=== PATIENT | male | born 1945 | race Caucasian/White ===

== ENCOUNTER 2017-07-08 12:29 | Inpatient (IN) | payer MEDICARE, MEDICAID ==
[2017-07-08] VITALS (10 sets, daily range): BP systolic 104–116; BP diastolic 60–72
[~2017-07-08] VITALS: Ht 177.8 cm; Wt 75.9 kg
--- NOTE | 2017-07-08 12:45 | NUR ---
BIB [facility] C/O NAUSEA PRIOR TO DIALYSIS, WAS NOT DIALYSED TODAY, NAD NOTED, VSS, RESP EVEN AND UNLABORED, PA AT BS, IV STARTED, BLOOD SAMPLE SENT TO LAB.
[2017-07-08 12:56] LABS: BASOPHILS % (AUTO) 0.3 % (0.0-2.0); EOSINOPHILS # (AUTO) 0.1 /CMM (0.0-0.7); EOSINOPHILS % (AUTO) 1.1 % (0.0-6.0); HEMATOCRIT 21 % (39-51); LYMPHOCYTES # (AUTO) 0.7 /CMM (0.8-4.8); LYMPHOCYTES % (AUTO) 9.7 % (20.0-44.0); MEAN CORPUSCULAR HEMOGLOBIN 32 PG (26.0-33.0); MEAN CORPUSCULAR HGB CONC 33 g/dl (31.0-36.0); MEAN CORPUSCULAR VOLUME 94 fL (80-96); MONOCYTES # (AUTO) 0.4 /CMM (0.1-1.30); MONOCYTES % (AUTO) 5.5 % (2.0-12.0); NEUTROPHILS # (AUTO) 5.6 /CMM (1.8-8.9); NEUTROPHILS % (AUTO) 83.4 % (43.0-81.0); PLATELET COUNT (AUTO) 147 /CMM (150-450); RDW COEFFICIENT OF VARIATION 15.6 (11.5-15.0); RED BLOOD CELL COUNT(AUTO) 2.18 MIL/uL (4.5-6.0); WHITE BLOOD COUNT (AUTO) 6.8 K/uL (4.3-11.0)
[2017-07-08 12:59] LABS: HEMOGLOBIN 6.9 g/dL (13.5-17.5)
[2017-07-08 13:07] LABS: CARBON DIOXIDE 32 mmol/L (21-32); CHLORIDE 100 mmol/L (98-107); CREATININE 7.1 mg/dL (0.6-1.3); GLUCOSE 195 mg/dL (74-106); POTASSIUM 4.8 mmol/L (3.5-5.1); SODIUM SERUM 139 mmol/L (136-145); UREA NITROGEN, BLOOD 58 mg/dL (7-18)
[2017-07-08 13:10] LABS: INR 0.98 (0.87-1.13); PROTHROMBIN TIME 10.2 SECS (9.5-12.7)
--- NOTE | 2017-07-08 13:14 | NUR ---
PT IS UNABLE TO URINATE. WILL TRY AGAIN IN 10 MINUTES.
[2017-07-08 13:16] LABS: TROPONIN I 1.733 ng/mL (0.00-0.056)
[2017-07-08 13:18] LABS: ALANINE AMINOTRANSFERASE 25 U/L (12-78); ALBUMIN 3.2 g/dL (3.4-5.0); ALKALINE PHOSPHATASE 49 U/L (46-116); ASPARTATE AMINOTRANSFERASE 18 U/L (15-37); BILIRUBIN,DIRECT 0.2 mg/dL (0.0-0.2); BILIRUBIN,TOTAL 0.7 mg/dL (0.2-1.0); TOTAL PROTEIN, SERUM 7.5 g/dL (6.4-8.2)
--- NOTE | 2017-07-08 13:34 | NUR ---
CALLED DR HAYES, ON THE PHONE WITH DR FLORES.
--- NOTE | 2017-07-08 13:41 | NUR ---
CALLED DR WELLS OFFICE, WAS PAGED.
[2017-07-08] MEDS ORDERED: PANTOPRAZOLE 80 MG in IV NS 0.9% 100 ML IV ONE (14:00)
[2017-07-08] MEDS ORDERED: PANTOPRAZOLE 80 MG in IV NS 0.9% 500 ML IV ONE (14:00)
--- NOTE | 2017-07-08 14:00 | NUR ---
RN INITIAL NOTE PATIENT RECEIVED VIA GURNEY FROM ER. PATIENT IS AWAKE, ALERT AND ORIENTED. ABLE TO MAKE NEEDS KNOWN. IV SITE FLUSHED, PATENT. SINUS RHYTHM ON TELE MONITOR. SKIN IS WARM AND DRY TO TOUCH. RESPIRATIONS ARE EVEN, TACHY. SATING WELL ON ROOM AIR. NO S/S OF RESPIRATORY DISTRESS OR SOB. SAFETY PRECAUTIONS IMPLEMENTED. BED IN LOCKED, LOW POSITION. TWO SIDE RAILS UP. CALL LIGHT AND BELONGINGS WITHIN EASY REACH. WILL CONTINUE TO MONITOR.
[2017-07-08] MEDS ORDERED: OLANZAPINE 10 MG VIAL IM ONE ×2 (14:15→14:30)
[2017-07-08] MEDS ORDERED: INSU100V11 SQ (14:17)
[2017-07-08] MEDS ORDERED: MULT1TAB11 PO (14:17)
[2017-07-08] MEDS ORDERED: EZET10TA PO (14:17)
[2017-07-08] MEDS ORDERED: ASPI-991 PO (14:17)
[2017-07-08] MEDS ORDERED: BENA20TA2 PO (14:17)
[2017-07-08] MEDS ORDERED: THIA100T74 PO (14:17)
[2017-07-08] MEDS ORDERED: BLOO-668 IN (14:17)
[2017-07-08] MEDS ORDERED: METO25TA20 PO (14:17)
[2017-07-08] MEDS ORDERED: SITA50TA PO (14:17)
[2017-07-08] MEDS ORDERED: AMLO2.5T PO (14:17)
[2017-07-08] MEDS ORDERED: CLOP75TA2 PO (14:17)
[2017-07-08] MEDS ORDERED: FOLI1TAB16 PO (14:17)
[2017-07-08] MEDS ORDERED: OMEG-143 PO (14:17)
[2017-07-08] MEDS ORDERED: CALC667T2 PO (14:17)
[2017-07-08] MEDS ORDERED: ONDA4TAB5 PO (14:18)
[2017-07-08] MEDS ORDERED: ACET-868 PO (14:19)
[2017-07-08] MEDS ORDERED: MAG30ORA PO (14:19)
[2017-07-08] MEDS ORDERED: DOCU-25 PO (14:19)
[2017-07-08 15:36] LABS: LYMPHOCYTES % (MANUAL) 8 % (16-48); MONOCYTES % (MANUAL) 2 % (0-11.0); NEUTROPHILS % (MANUAL) 90 (42-76)
[2017-07-08] MEDS ORDERED: DEXTROSE 50%-WATER 50 ML DISP.SYRIN IV PRN (16:30)
[2017-07-08] MEDS ORDERED: ONDANSETRON HCL/PF 4 MG/2 ML VIAL IV PRN (17:00)
[2017-07-08] MEDS ORDERED: Medication Not On Formulary EA (Ondansetron Hcl (Zofran) 4 MG) PO PRN (17:00)
[2017-07-08] MEDS ORDERED: MAG HYDROX/AL HYDROX/SIMETH 30 ML UDC PO PRN (17:00)
[2017-07-08] MEDS: BLOOD SUGAR DIAGNOSTIC 1 EACH STRIP IN SCH ×4 (17:30→21:29)
[2017-07-08] MEDS: ACETAMINOPHEN 325 MG TABLET PO PRN ×2 (17:36→20:49)
[2017-07-08] MEDS: CALCIUM ACETATE 667 MG TABLET PO SCH ×2 (17:36→22:28)
[2017-07-08] MEDS: METOPROLOL TARTRATE 25 MG TABLET PO SCH ×2 (17:36→22:29)
[2017-07-08] MEDS: PANTOPRAZOLE 40 MG VIAL IV SCH (17:59)
[2017-07-08] MEDS: INSULIN ASPART HUMALOG/NOVOLOG 100 UNIT/ML CARTRIDGE SQ PRN ×2 (18:17→21:27)
--- NOTE | 2017-07-08 18:59 | NUR ---
RN CLOSING NOTE ALL MD ORDERS CARRIED OUT, PATIENT KEPT CLEAN AND DRY. SAFETY PRECAUTIONS IN PLACE AT ALL TIMES . WILL GIVE REPORT TO PM RN FOR LOC.
--- NOTE | 2017-07-08 19:35 | NUR ---
RN PAUL OPENING NOTE PT REMAINS IN NO ACUTE DISTRESS AT THIS TIME. PT IS ON TELE WITH SR 87. PT IS VERY AGITATED AND WHEN ASKING HIM FOR CONSENT FOR 1 UNIT OF BLOOD HE THEN STATED "GET THE FUCK AWAY FROM ME OR ELSE I WILL PUT MY FIST THROUGH YOUR FACE". I THEN CALLED SISTER FOR VERBAL CONSENT. PT HAS MIDLINE 18G THAT IS CLEAN DRY AND INTACT. NEW 22G STARTED IN LEFT FA AND 22G IN RIGHT HAND. BLOOD TO BE GIVEN SOON. COMFORT AND SAFETY MEASURES TO BE ENSURED DURING THE SHIFT.
--- NOTE | 2017-07-08 20:00 | NUR ---
RN NOTE SOFT RESTRAINTS PLACED ON PT BILATERAL WRISTS. ORDER PLACED FROM IAIN MAYERS
--- NOTE | 2017-07-08 22:26 | NUR ---
RN NOTE PT IS TOLERATING 1 UNIT PRBC WELL. VITALS WNL. WILL CONTINUE TO MONITOR.
[2017-07-08] MEDS: RENAL NOVASOURCE (8OZ) 1 EA BOX PO SCH (22:29)
[2017-07-09] VITALS: BP 107/68
[2017-07-09 04:00] VITALS: BP 114/72
[2017-07-09 06:39] LABS: BASOPHILS % (AUTO) 0.8 % (0.0-2.0); EOSINOPHILS # (AUTO) 0.1 /CMM (0.0-0.7); EOSINOPHILS % (AUTO) 1.6 % (0.0-6.0); HEMATOCRIT 21 % (39-51); HEMOGLOBIN 7.1 g/dL (13.5-17.5); LYMPHOCYTES # (AUTO) 0.8 /CMM (0.8-4.8); MEAN CORPUSCULAR HEMOGLOBIN 32 PG (26.0-33.0); MEAN CORPUSCULAR HGB CONC 34 g/dl (31.0-36.0); MEAN CORPUSCULAR VOLUME 94 fL (80-96); MONOCYTES # (AUTO) 0.2 /CMM (0.1-1.30); MONOCYTES % (AUTO) 4.4 % (2.0-12.0); NEUTROPHILS % (AUTO) 78.2 % (43.0-81.0); PLATELET COUNT (AUTO) 113 /CMM (150-450); RDW COEFFICIENT OF VARIATION 16.1 (11.5-15.0); RED BLOOD CELL COUNT(AUTO) 2.22 MIL/uL (4.5-6.0); WHITE BLOOD COUNT (AUTO) 5.1 K/uL (4.3-11.0)
[2017-07-09 06:55] LABS: CALCIUM, SERUM 8.5 mg/dL (8.5-10.1); CARBON DIOXIDE 29 mmol/L (21-32); CHLORIDE 103 mmol/L (98-107); GLUCOSE 222 mg/dL (74-106); MAGNESIUM 2.6 mg/dL (1.8-2.4); PHOSPHORUS 6.2 mg/dL (2.5-4.9); POTASSIUM 5.3 mmol/L (3.5-5.1); SODIUM SERUM 142 mmol/L (136-145); UREA NITROGEN, BLOOD 61 mg/dL (7-18)
[2017-07-09] MEDS: BLOOD SUGAR DIAGNOSTIC 1 EACH STRIP IN SCH ×5 (07:30→21:34)
[2017-07-09 08:00] VITALS: BP 125/72
[2017-07-09] MEDS: RENAL NOVASOURCE (8OZ) 1 EA BOX PO SCH ×3 (08:00→17:26)
--- NOTE | 2017-07-09 08:00 | NUR ---
TD/RN AM SHIFT INITIAL NOTES RECEIVED PT AWAKE SITTING IN BED, PT IS A/O X 2-3 WITH NOTED CONFUSION. RUDE, CURSES, USED OBSCENE LANGUAGE. NO ACTIVE BLEEDING NOTED AT THIS TIME, NO ACUTE CHANGE OF CONDITION. DENIES PAIN. ON 2L O2 VIA N/C SATURATING @ 100%, LUNG SOUNDS CLEAR. ON TELE WITH SINUS RHYTHM, HR 98. IV SITE FLUSHED, PATENT WITH NO S/S OF INFECTION. BLOOD GLUCOSE CHECKED, 224, NO S/S OF HYPERGLYCEMIA, PT REFUSED INSULIN COVERAGE. SCHEDULED AM MEDS TO BE GIVEN. CL WITHIN REACHED, SAFETY MAINTAINED AND SITTER AT BEDSIDE. ON GOING MONITORING.
[2017-07-09] MEDS: CALCIUM ACETATE 667 MG TABLET PO SCH ×3 (08:49→17:26)
[2017-07-09] MEDS: MULTIVIT, IRON, MIN NO. 8, FA 1 TAB PO SCH (08:49)
[2017-07-09] MEDS: FOLIC ACID 1 MG TABLET PO SCH (08:49)
[2017-07-09] MEDS: AMLODIPINE BESYLATE 2.5 MG TABLET PO SCH (08:50)
[2017-07-09] MEDS: BENAZEPRIL HCL 10 MG TABLET PO SCH (08:50)
[2017-07-09] MEDS: LINAGLIPTIN 5 MG TABLET PO SCH (08:50)
[2017-07-09] MEDS: ASPIRIN EC 81 MG TABLET.DR PO SCH (08:50)
[2017-07-09] MEDS: METOPROLOL TARTRATE 25 MG TABLET PO SCH ×2 (08:50→17:00)
[2017-07-09] MEDS: Z GUARD REMEDY 2 OZ OINT TP SCH (08:51)
[2017-07-09] MEDS: THIAMINE HCL 100 MG TABLET PO SCH (08:51)
[2017-07-09] MEDS ORDERED: SITAGLIPTIN PHOSPHATE 50 MG TABLET PO SCH (09:00)
--- NOTE | 2017-07-09 11:30 | NUR ---
TD/RN NOON ROUNDS BLOOD GLUCOSE CHECKED, RESULT 240, PT REFUSED INSULIN COVERAGE. RISKS AND BENEFITS EXPLAINED, PT STILL REFUSED COVERAGE, NO S/S OF HYPERGLYCEMIA. PT IS COMFORTABLE, SITTER AT BEDSIDE. MONITORING CONTINUED.
[2017-07-09 12:00] VITALS: BP 101/49
--- NOTE | 2017-07-09 12:22 | NUR ---
TD/RN ROUNDS - DR. ALFONSO PT SEEN & EXAMINED BY DR. ALFONSO. NO NEW ORDERS RECEIVED AT THIS TIME. PT VERBALIZED TO BOTH MYSELF AND DR. ALFONSO HIS REFUSAL FOR DIALYSIS TREATMENT. CHARGE NURSE MADE AWARE. ON GOING MONITORING.
[2017-07-09 16:00] VITALS: BP 98/46
[2017-07-09] MEDS: PANTOPRAZOLE 40 MG VIAL IV SCH (17:26)
--- NOTE | 2017-07-09 18:28 | NUR ---
TD/REGISTRY RN SPOKEN TO PT'S SISTER, UPDATED PT'S CONDITION. SHE REQUESTED A VISIT FROM A RABBI, BUT WHEN PT WAS ASKED, HE SAID HIS RABBI IS AND DON'T WANT TO SEE ANY OTHER RABBI. PT'S SISTER ALSO WANT TO SPEAK TO SOCIAL SERVICE REGARDING PT'S REFUSAL FOR SOME TREATMENT LIKE DIALYSIS. SHE SAID THAT SHE IS NOT THE LEGAL ADVOCATE FOR HER BROTHER.
[2017-07-09] MEDS: ACETAMINOPHEN 325 MG TABLET PO PRN (18:54)
--- NOTE | 2017-07-09 19:30 | NUR ---
TD/RN AM SHIFT END NOTES ALL NEEDS MET. NO ACUTE CHANGE OF CONDITION NOTED DURING THE SHIFT. PT HAS REFUSED ALL INSULIN COVERAGE, RISKS AND BENEFITS EXPLAINED, STILL REFUSED. PT TAKES ORAL MEDICATION FOR DIABETES, NO S/S OF HYPERGLYCEMIA NOTED. PT ENDORSED TO PM NURSE TO CONTINUE CARE. CL WITHIN REACHED AND SAFETY MAINTAINED, SITTER AT BEDSIDE.
--- NOTE | 2017-07-09 19:30 | NUR ---
PAUL RN INITIAL NOTES RECEIVED PATIENT AWAKE, ALERT, UNCOOPERATIVE, VERBALLY ABUSIVE AND MAKING RACIAL SLURS, AND THREATS TO HURT US. NO RESPIRATORY DISTRESS NOTED, ON RA. ON TELE MONITOR SR WITH BBB 86. SKIN WARM AND DRY TO TOUCH. NO S/S OF PAIN OR DISCOMFORT NOTED. SKIN WARM AND DRY TO TOUCH. WITH BILATERAL WRIST RESTRAINTS, CIRCULATION CHECKED. SIDE RAILS UP AND LOCKED. BED KEPT AT LOWEST POSITION. CALL LIGHT KEPT WITHIN EASY REACH. WILL CONTINUE TO MONITOR.
[2017-07-09 20:00] VITALS: BP 98/56
--- NOTE | 2017-07-09 22:00 | NUR ---
PAUL RN NOTES BLOOD SUGAR CHECKED 177, PATIENT REFUSED INSULIN, DESPITE EXPLANATIONS OF RISKS AND BENEFITS. PATIENT HOSTILE. NO S/S OF HYPERGLYCEMIA. WILL CONTINUE TO MONITOR.
[2017-07-10] VITALS (10 sets, daily range): BP systolic 99–135; BP diastolic 36–68
--- NOTE | 2017-07-10 06:29 | NUR ---
PAUL RN CLOSING NOTES PATIENT SLEPT INTERMITTENTLY THROUGH THE NIGHT, WITH NO C/O PAIN OR DISCOMFORT. WITH CONTINOUS VERBAL ABUSE TOWARDS STAFF, NAME CALLING, RACIST REMARKS, AND OTHER INAPPROPRIATE WORDS. ALL NEEDS ANTICIPATED AND MET. NO RESPIRATORY DISTRESS NOTED, WITH 2LPMO2 VIA NC. SKIN WARM AND DRY TO TOUCH. KEPT CLEAN AND DRY. TURNED AND REPOSITIONED Q2 AND PRN. BILATERAL SOFT RESTRAINTS IN PLACE FOR PATIENTS SAFETY, CIRCULATION CHECKED. SIDE RAILS UP AND LOCKED. BED KEPT AT LOWEST POSITION. CALL LIGHT KEPT WITHIN EASY REACH. WILL ENDORSE CONTINUITY OF CARE TO AM NURSE.
[2017-07-10 06:57] LABS: BASOPHILS % (AUTO) 0.8 % (0.0-2.0); EOSINOPHILS # (AUTO) 0.1 /CMM (0.0-0.7); LYMPHOCYTES # (AUTO) 0.6 /CMM (0.8-4.8); LYMPHOCYTES % (AUTO) 16.5 % (20.0-44.0); MEAN CORPUSCULAR HEMOGLOBIN 32 PG (26.0-33.0); MEAN CORPUSCULAR HGB CONC 34 g/dl (31.0-36.0); MEAN CORPUSCULAR VOLUME 95 fL (80-96); MONOCYTES # (AUTO) 0.2 /CMM (0.1-1.30); MONOCYTES % (AUTO) 5.1 % (2.0-12.0); NEUTROPHILS # (AUTO) 2.9 /CMM (1.8-8.9); NEUTROPHILS % (AUTO) 74.6 % (43.0-81.0); PLATELET COUNT (AUTO) 95 /CMM (150-450); RDW COEFFICIENT OF VARIATION 16.2 (11.5-15.0); RED BLOOD CELL COUNT(AUTO) 2.07 MIL/uL (4.5-6.0); WHITE BLOOD COUNT (AUTO) 3.9 K/uL (4.3-11.0)
[2017-07-10 07:11] LABS: ALANINE AMINOTRANSFERASE 19 U/L (12-78); ALBUMIN 2.5 g/dL (3.4-5.0); ALKALINE PHOSPHATASE 43 U/L (46-116); ASPARTATE AMINOTRANSFERASE 14 U/L (15-37); BILIRUBIN,TOTAL 0.7 mg/dL (0.2-1.0); CALCIUM, SERUM 8.7 mg/dL (8.5-10.1); CARBON DIOXIDE 27 mmol/L (21-32); CHLORIDE 103 mmol/L (98-107); GLUCOSE 202 mg/dL (74-106); MAGNESIUM 2.7 mg/dL (1.8-2.4); PHOSPHORUS 6.8 mg/dL (2.5-4.9); POTASSIUM 5.3 mmol/L (3.5-5.1); SODIUM SERUM 139 mmol/L (136-145); TOTAL PROTEIN, SERUM 6.7 g/dL (6.4-8.2); UREA NITROGEN, BLOOD 70 mg/dL (7-18)
[2017-07-10 07:12] LABS: HEMATOCRIT 20 % (39-51); HEMOGLOBIN 6.6 g/dL (13.5-17.5)
[2017-07-10 07:14] LABS: CREATININE 9.2 mg/dL (0.6-1.3)
--- NOTE | 2017-07-10 07:15 | NUR ---
PAUL RN NOTES RECEIVED CRITICAL RESULT OF HGB 6.6 AND HCT 20. NO ACTIVE BLEEDING NOTED. RELAYED TO AM NURSE.
--- NOTE | 2017-07-10 07:30 | NUR ---
TD/RN ROUNDS - DR. ELIZONDO PT SEEN & EXAMINED BY DR. ELIZONDO, PER MD PT AGREED TO BE DIALYZED AND TRANSFUSED. NOTED.
[2017-07-10] MEDS: RENAL NOVASOURCE (8OZ) 1 EA BOX PO SCH ×3 (08:00→17:30)
--- NOTE | 2017-07-10 08:00 | NUR ---
TD/RN AM SHIFT INITIAL NOTES RECEIVED PT AWAKE SITTING IN BED. PT A/O X 3 WITH NOTED CONFUSION. DENIES ANY SYMPTOMS. NO ACUTE CHANGE OF CONDITION NOTED. MORE PLEASANT THIS MORNING. ON 2L O2 VIA N/C SATURATING @ 100%, LUNG SOUNDS CLEAR. ON TELE WITH SINUS RHYTHM WITH BBB, HR 72. IV SITE FLUSHED, PATENT WITH NO S/S OF INFECTION, SL. BP MEDS TO BE HELD. PT WILL HAVE DIALYSIS TX TODAY. BILATERAL WRIST RESTRAINTS RELEASED TO CHECK FOR CIRCULATION AND COMFORT THEN PLACED BACK. BLOOD GLUCOSE CHECKED, 210, PT REFUSED INSULIN COVERAGE, HE IS TAKING ORAL MEDICATION FOR DIABETES. PT IS COMFORTABLE AT THIS TIME. CL WITHIN REACHED AND SAFETY MAINTAINED. ON GOING MONITORING.
[2017-07-10] MEDS: AMLODIPINE BESYLATE 2.5 MG TABLET PO SCH (09:00)
[2017-07-10] MEDS: METOPROLOL TARTRATE 25 MG TABLET PO SCH ×2 (09:00→16:45)
[2017-07-10] MEDS: BENAZEPRIL HCL 10 MG TABLET PO SCH (09:00)
[2017-07-10] MEDS: BLOOD SUGAR DIAGNOSTIC 1 EACH STRIP IN SCH ×4 (09:20→22:02)
[2017-07-10] MEDS: CALCIUM ACETATE 667 MG TABLET PO SCH ×3 (09:21→17:30)
[2017-07-10] MEDS: ASPIRIN EC 81 MG TABLET.DR PO SCH (09:21)
[2017-07-10] MEDS: MULTIVIT, IRON, MIN NO. 8, FA 1 TAB PO SCH (09:21)
[2017-07-10] MEDS: FOLIC ACID 1 MG TABLET PO SCH (09:21)
[2017-07-10] MEDS: LINAGLIPTIN 5 MG TABLET PO SCH (09:21)
[2017-07-10] MEDS: Z GUARD REMEDY 2 OZ OINT TP SCH (09:22)
[2017-07-10] MEDS: THIAMINE HCL 100 MG TABLET PO SCH (09:24)
--- NOTE | 2017-07-10 12:00 | NUR ---
TELE1/RN NOON ROUNDS BLOOD GLUCOSE CHECKED, RESULT 195, PT REFUSED INSULIN COVERAGE. RISKS & BENEFITS EXPLAINED, PT VERBALIZED UNDERSTANDING, STILL REFUSED. NO S/S OF HYPERGLYCEMIA. NO CHANGE OF CONDITION. MONITORING CONTINUED.
[2017-07-10] MEDS: PANTOPRAZOLE 40 MG VIAL IV SCH (16:43)
--- NOTE | 2017-07-10 17:00 | NUR ---
TELE1/RN AFTERNOON ROUNDS BLOOD GLUCOSE CHECKED, RESULT 149, PT REFUSED INSULIN COVERAGE. RISKS & BENEFITS EXPLAINED, PT VERBALIZED UNDERSTANDING, STILL REFUSED. NO S/S OF HYPERGLYCEMIA. SCHEDULED METOPROLOL HELD D/T PT WILL HAVE DIALYSIS THIS EVENING, BP ON THE LOW SIDE. NO CHANGE OF CONDITION. ON GOING MONITORING.
--- NOTE | 2017-07-10 19:40 | NUR ---
SKI TOW OPERATOR NOTES, PATIENT IN BED ALERT AND ORIENTED, ABLE TO VERBALIZED NEEDS, ON O2 2LPM VIA N/C SATURATION WNL BREATHING EVEN AND UNLABORED, NO S/S OF SOB OR ACUTE DISTRESS NOTED AT THIS TIME, RECEIVING HD AT THIS TIME, PT TOLERATING WELL AND VS WNL. TELE SR 78 WITH BBB. JC MIDLINE NO S/S OF INFECTION NOTED, PATENCY INTACT, CLRAN AND FLUSHING WELL. LCW PERM CATH IN PLACE, CLEAN AND DRY. SITTER AT BED SIDE FOR SAFETY. BED IN LOCKED AND LOWEST POSITION, CALL LIGHT W/I RAECH. ALL NEED PROVIDED. WILL CONTINUE TO MONITOR CLOSELY.
--- NOTE | 2017-07-10 19:51 | NUR ---
TELE1/RN AM SHIFT END NOTES ALL NEEDS MET. NO ACUTE CHANGE OF CONDITION NOTED DURING THE SHIFT. PT ENDORSED TO PM NURSE TO CONTINUE CARE. ON GOING DIALYSIS TX, TO BE GIVEN 1 UNIT OF PRBC. CL WITHIN REACHED AND SAFETY MAINTAINED.
--- NOTE | 2017-07-10 20:10 | NUR ---
RN NOTES, BLOOD TRANSFUSION OF ONE UNIT INITIATED DUE TO HEGB 6.6 WITH HD AT THIS TIME VS 111/48, 98.4, 80, 18. WELL TOLERATED AT THIS POINT. WILL CONTINUE TO MONITOR CLOSELY.
[2017-07-10] MEDS: INSULIN DETEMIR 100 UNIT/ML CARTRIDGE SQ SCH (21:00)
--- NOTE | 2017-07-10 22:47 | NUR ---
RN NOTES, BILATERAL SOF WRIST RESTRIANS DC AT THIS TIME DUE TO PATIENT CALM AND COOPERATIVE WITH CARE, SITTER AT BEDSIDE AT THIS TIME. ALL SAFETY MEASURES IN PLACE. WILL CONTINUE TO MONITOR.
[2017-07-11] VITALS: BP 108/54
[2017-07-11 04:00] VITALS: BP 106/53
[2017-07-11 06:41] LABS: BASOPHILS % (AUTO) 0.9 % (0.0-2.0); EOSINOPHILS # (AUTO) 0.2 /CMM (0.0-0.7); EOSINOPHILS % (AUTO) 5.4 % (0.0-6.0); HEMATOCRIT 23 % (39-51); HEMOGLOBIN 7.9 g/dL (13.5-17.5); LYMPHOCYTES # (AUTO) 0.6 /CMM (0.8-4.8); LYMPHOCYTES % (AUTO) 20.1 % (20.0-44.0); MEAN CORPUSCULAR HEMOGLOBIN 32 PG (26.0-33.0); MEAN CORPUSCULAR HGB CONC 34 g/dl (31.0-36.0); MEAN CORPUSCULAR VOLUME 94 fL (80-96); MONOCYTES # (AUTO) 0.2 /CMM (0.1-1.30); MONOCYTES % (AUTO) 5.3 % (2.0-12.0); NEUTROPHILS # (AUTO) 2.2 /CMM (1.8-8.9); NEUTROPHILS % (AUTO) 68.3 % (43.0-81.0); PLATELET COUNT (AUTO) 104 /CMM (150-450); RDW COEFFICIENT OF VARIATION 16.6 (11.5-15.0); RED BLOOD CELL COUNT(AUTO) 2.47 MIL/uL (4.5-6.0); WHITE BLOOD COUNT (AUTO) 3.2 K/uL (4.3-11.0)
--- NOTE | 2017-07-11 06:44 | NUR ---
RN CLOSING NOTES, PATIENT SLEEPING WITH SITTER AT BEDSIDE, NO ACUTE DISTRESS NOTED, NO C/O PAIN OR DISCOMFORT, ALL NEED ATTENDED. ASSISTED TO BEDSIDE COMMODE SAFELY. PATIENT REMAINDED STABLE DURING SHIFT S/P HD AND ONE UNIT OF PRBCS. CALL LIGHT W/I, WILL ENDORSE TO NEXT SHIFT.
[2017-07-11] MEDS: BLOOD SUGAR DIAGNOSTIC 1 EACH STRIP IN SCH ×4 (07:36→21:03)
--- NOTE | 2017-07-11 07:54 | NUR ---
COMMUNICATION COORDINATOR NOTES, PATIENT IN BED ALERT AND ORIENTED, ABLE TO VERBALIZED NEEDS, ON O2 2LPM VIA N/C SATURATION WNL BREATHING EVEN AND UNLABORED, NO S/S OF SOB OR ACUTE DISTRESS NOTED AT THIS TIME, TELE SR 78 WITH BBB. JC MIDLINE CDI AND PATENT.LCW PERM CATH IN PLACE, CLEAN AND DRY. SITTER AT BED SIDE FOR SAFETY. BED IN LOCKED AND LOWEST POSITION, CALL LIGHT W/I RAECH. ALL NEED PROVIDED. WILL CONTINUE TO MONITOR CLOSELY
[2017-07-11 08:00] VITALS: BP_SYST 102; BP_SYST 131; BP_DIAS 45; BP_DIAS 66
[2017-07-11] MEDS: RENAL NOVASOURCE (8OZ) 1 EA BOX PO SCH ×3 (08:00→17:48)
[2017-07-11] MEDS: BENAZEPRIL HCL 10 MG TABLET PO SCH (08:58)
[2017-07-11] MEDS: MULTIVIT, IRON, MIN NO. 8, FA 1 TAB PO SCH (08:58)
[2017-07-11] MEDS: LINAGLIPTIN 5 MG TABLET PO SCH (08:59)
[2017-07-11] MEDS: THIAMINE HCL 100 MG TABLET PO SCH (08:59)
[2017-07-11] MEDS: CALCIUM ACETATE 667 MG TABLET PO SCH ×3 (08:59→17:48)
[2017-07-11] MEDS: FOLIC ACID 1 MG TABLET PO SCH (08:59)
[2017-07-11] MEDS: METOPROLOL TARTRATE 25 MG TABLET PO SCH (08:59)
[2017-07-11] MEDS: ASPIRIN EC 81 MG TABLET.DR PO SCH (09:00)
[2017-07-11] MEDS: INSULIN DETEMIR 100 UNIT/ML CARTRIDGE SQ SCH ×2 (09:04→21:16)
[2017-07-11] MEDS: Z GUARD REMEDY 2 OZ OINT TP SCH (09:09)
[2017-07-11] MEDS: INSULIN ASPART HUMALOG/NOVOLOG 100 UNIT/ML CARTRIDGE SQ PRN ×2 (11:54→21:17)
[2017-07-11 12:00] VITALS: BP 102/45
[2017-07-11 16:00] VITALS: BP 128/70
[2017-07-11] MEDS: METOPROLOL SUCCINATE 50 MG TAB.SR.24H PO SCH (17:48)
[2017-07-11] MEDS: PANTOPRAZOLE 40 MG VIAL IV SCH (17:48)
--- NOTE | 2017-07-11 19:05 | NUR ---
MS RN OPENING NOTES: RECEIVED PT IN BED ASLEEP. SITTER AT BEDSIDE. BREATHING EVEN AND UNLABORED, NO S/S OF SOB OR ACUTE DISTRESS NOTED AT THIS TIME. JC MIDLINE PATENT AND INTACT. LCW PERM CATH IN PLACE, CLEAN AND DRY. BED KEPT IN LOCKED AND LOWEST POSITION, CALL LIGHT WITHIN PT'S REACH. PT ALSO HAS IV ON L FOREARM #22G AND IS PATENT AND INTACT. WILL CONTINUE TO MONITOR PT.
[2017-07-11 20:00] VITALS: BP 122/74
[2017-07-11] MEDS: ATORVASTATIN 10 MG TABLET PO SCH (21:03)
--- NOTE | 2017-07-11 21:25 | NUR ---
MS RN NOTES: UPON ADMINISTERING LEVEMIR AND HUMALOG, PT REFUSED TO HAVE THE INSULIN SHOTS. EXPLAINED TO PT X3 RISKS AND BENEFITS OF INSULIN AND PT REFUSES. WILL CONTINUE TO MONITOR PT.
--- NOTE | 2017-07-12 03:23 | NUR ---
MS RN NOTES: SITTER AT BEDSIDE AND CALLED FOR ME. SAW THAT PT HAD PULLED OUT L FOREARM #22G IV.
[2017-07-12 04:00] VITALS: BP 104/75
[2017-07-12] MEDS: BLOOD SUGAR DIAGNOSTIC 1 EACH STRIP IN SCH ×4 (06:09→21:30)
[2017-07-12] MEDS: INSULIN ASPART HUMALOG/NOVOLOG 100 UNIT/ML CARTRIDGE SQ PRN (06:25)
--- NOTE | 2017-07-12 06:26 | NUR ---
MS RN NOTES: BLOOD SUGAR WAS 153. INSULIN HELD D/T PT GOING TO BE NPO AFTER 7AM ENDORSED. PT HAS PROCEDURE TODAY AT 17:30. WILL CONTINUE TO MONITOR PT.
--- NOTE | 2017-07-12 06:45 | NUR ---
MS RN NOTES: CONSENT FOR DIALYSIS CATHETER REPLACEMENT OBTAINED THIS MORNING ALONG WITH OTHER RN, EDER.
--- NOTE | 2017-07-12 07:21 | NUR ---
MS RN CLOSING NOTES: ALL NEEDS WERE ATTENDED AND ANTICIPATED FOR. PT REFUSED ALL CARE FROM SITTER. PT LAYING DOWN AND IS RESTING IN BED. SITTER AT BEDSIDE. BREATHING EVEN AND UNLABORED, NO S/S OF SOB OR ACUTE DISTRESS NOTED AT THIS TIME. JC MIDLINE PATENT AND INTACT. LCW PERM CATH IN PLACE, CLEAN AND DRY. BED KEPT IN LOCKED AND LOWEST POSITION, CALL LIGHT WITHIN PT'S REACH. CONSENT OBTAINED FOR PROCEDURE TODAY. ENDORSED TO AM NURSE FOR LOC.
[2017-07-12 07:35] LABS: EOSINOPHILS # (AUTO) 0.2 /CMM (0.0-0.7); EOSINOPHILS % (AUTO) 4.8 % (0.0-6.0); HEMATOCRIT 27 % (39-51); HEMOGLOBIN 8.9 g/dL (13.5-17.5); LYMPHOCYTES # (AUTO) 0.9 /CMM (0.8-4.8); LYMPHOCYTES % (AUTO) 20.2 % (20.0-44.0); MEAN CORPUSCULAR HEMOGLOBIN 32 PG (26.0-33.0); MEAN CORPUSCULAR HGB CONC 34 g/dl (31.0-36.0); MEAN CORPUSCULAR VOLUME 94 fL (80-96); MONOCYTES # (AUTO) 0.2 /CMM (0.1-1.30); PLATELET COUNT (AUTO) 126 /CMM (150-450); RDW COEFFICIENT OF VARIATION 16.3 (11.5-15.0); RED BLOOD CELL COUNT(AUTO) 2.81 MIL/uL (4.5-6.0); WHITE BLOOD COUNT (AUTO) 4.3 K/uL (4.3-11.0)
--- NOTE | 2017-07-12 07:48 | NUR ---
RN NOTES RECEIVED PT. PT IS STABLE AND RESTING IN BED, A/OX1 PT IS CONFUSED. SITTER IS BEDSIDE. PERM-CATH LOCATED ON LEFT CHEST WALL. PT SCHEDULED FOR H/D CATH REVISION TODAY AT 1730, PLACED ON NPO UNTIL THEN. NO S/S OF RESPIRATORY DISTRESS OR SOB. IV ACCESS LOCATED ON RIGHT UPPER ARM, MIDLINE. SAFETY MEASURES IN PLACE, CALL LIGHT WITHIN REACH. WILL CONTINUE TO MONITOR.
[2017-07-12 08:00] VITALS: BP 108/78
[2017-07-12] MEDS: RENAL NOVASOURCE (8OZ) 1 EA BOX PO SCH ×3 (08:00→17:07)
[2017-07-12] MEDS: CALCIUM ACETATE 667 MG TABLET PO SCH ×3 (08:00→17:07)
[2017-07-12 08:07] LABS: CALCIUM, SERUM 8.6 mg/dL (8.5-10.1); CARBON DIOXIDE 27 mmol/L (21-32); CHLORIDE 101 mmol/L (98-107); GLUCOSE 157 mg/dL (74-106); MAGNESIUM 2.8 mg/dL (1.8-2.4); PHOSPHORUS 5.5 mg/dL (2.5-4.9); POTASSIUM 5.5 mmol/L (3.5-5.1); SODIUM SERUM 139 mmol/L (136-145)
[2017-07-12 08:10] LABS: CREATININE 9.4 mg/dL (0.6-1.3); UREA NITROGEN, BLOOD 80 mg/dL (7-18)
[2017-07-12] MEDS: ASPIRIN EC 81 MG TABLET.DR PO SCH (08:18)
[2017-07-12] MEDS: BENAZEPRIL HCL 10 MG TABLET PO SCH (08:18)
[2017-07-12] MEDS: FOLIC ACID 1 MG TABLET PO SCH (08:18)
[2017-07-12] MEDS: LINAGLIPTIN 5 MG TABLET PO SCH (08:19)
[2017-07-12] MEDS: THIAMINE HCL 100 MG TABLET PO SCH (08:19)
[2017-07-12] MEDS: MULTIVIT, IRON, MIN NO. 8, FA 1 TAB PO SCH (08:19)
[2017-07-12] MEDS: INSULIN DETEMIR 100 UNIT/ML CARTRIDGE SQ SCH ×2 (08:19→21:00)
[2017-07-12] MEDS: Z GUARD REMEDY 2 OZ OINT TP SCH (08:20)
--- NOTE | 2017-07-12 08:20 | NUR ---
RN NOTES AM PO MEDICATIONS HELD PER NPO STATUS FOR H/D CATH REVISION THIS AFTERNOON. SCHEDULED INSULIN LEVEMIR HELD DUE TO PT NPO STATUS. PER MARINE ENGINEERING TECHNICIANS REPORT, PT REFUSED ACCU CHECK THIS MORNING.
[2017-07-12] MEDS ORDERED: HALOPERIDOL LACTATE INJ 5 MG/ML VIAL IM PRN (13:00)
--- NOTE | 2017-07-12 16:08 | NUR ---
RN NOTES PT HAS BECOME NON-COMPLIANT WITH PLAN OF CARE AND RECOMMENDATIONS. PT APPEARS TO BE HOSTILE, NON-VIOLENT OF NOW, HOWEVER HAS STATED THAT HE IS INCREASINGLY DISPLEASED WITH BEING NPO. RISKS AND BENEFITS OF PROCEDURE EXPLAINED TO PT. PT DECLINES ALL TEACHING, REINFORCEMENT REQUIRED. PT HAS STATED "I JUST WANT A SANDWICH AND TO GO HOME". BOTH DR. ALFONSO AND DR. PERSON HAVE BEEN NOTIFIED OF THE PT'S BEHAVIOR AND FEELINGS. PT STATES "I WILL NOT HAVE THIS PROCEDURE PERFORMED". DUE TO HX OF DEMENTIA, AWAITING MD IN ORDER TO DETERMINE IF PT IS IN THE PROPER COGNITIVE STATE IN ORDER TO DECIDE AGAINST MEDICAL ADVICE. SITTER AT BEDSIDE. ILL CONTINUE TO ATTEMPT TO DE-ESCALATE PT'S BEHAVIOR. Addendum: 07/12/17 at 1615 by LIANE SARMIENTO PER DR. ALFONSO'S ORDER, HALDOL IM Q6H PRN 1MG ORDERED. TO BE GIVEN ONLY IF PT HAS CONTINUED TO ESCALATE AND BECOME VIOLENT.
[2017-07-12] MEDS: PANTOPRAZOLE 40 MG VIAL IV SCH (16:30)
[2017-07-12] MEDS ORDERED: ANESTHESIA TRAY IN PYXIS 1 EA TRAY MC ONE (16:50)
[2017-07-12] MEDS ORDERED: HEPARIN SODIUM, PORCINE 1,000 UNIT/ML VIAL ONE (16:50)
[2017-07-12] MEDS ORDERED: LIDOCAINE 0.5% HCL 50 ML VIAL ONE (16:51)
[2017-07-12] MEDS: METOPROLOL SUCCINATE 50 MG TAB.SR.24H PO SCH (17:00)
--- NOTE | 2017-07-12 17:34 | NUR ---
RN NOTES PT HAS BECOME EXCESSIVELY AGGRAVATED, EMOTIONAL AND HAS ESCALATED OVER THE LAST HOUR. MD ASSIGNED TO PERFORM HD CATH RENEWAL, DR. PERSON, CAME DOWN TO UNIT TO SPEAK WITH PT. PT'S MOOD ESCALATED EVEN FURTHER RESULTING IN OPERATION BEING CANCELED. NPO ORDER STOPPED, RENAL DIET RENEWED. PT IS IN THE HALLWAY VERBALLY ABUSING STAFF. SECURITY CALLED TO HELP DEESCALATE SITUATION. PT STATES "JUST GIVE ME MY *EXPLETIVE* SANDWICH YOU *EXPLETIVE*". DR. ALFONSO MADE AWARE OF SITUATION, REQUESTS THAT PRN HALDOL NOT BE GIVEN AND FOR PT TO BE REDIRECTED TO HIS ROOM AND OFFERED DINNER. WILL CONTINUE TO MONITOR.
--- NOTE | 2017-07-12 18:39 | NUR ---
RN CLOSING NOTE PT IN ROOM, EATING IN BED. A/OX2, NO RESP DISTRESS OR SOB. NO C/O PAIN AT THIS TIME. NPO ORDER REMOVED AND RENAL DIET REINSTATED. PT IS MORE CALM THAN BEFORE, HOWEVER STILL APPEARS TO BE AGITATED. MD AWARE OF SITUATION. SITTER IS AT BEDSIDE. HD CATH REPLACEMENT SX CANCELLED. PT HAS REFUSED ALL PROCEDURES. ACCUCHECKS FOR BOTH 1200 AND 1700 CANCELLED. IV MEDICATIONS REFUSED. SAFETY MEASURES IN PLACE. WILL ENDORSE TO DUST COLLECTOR FOR LOC.
[2017-07-12 20:00] VITALS: BP 122/66
--- NOTE | 2017-07-12 20:00 | NUR ---
ms/rn notes patient resting comfortably in bed with sitter, arousable and verbalize needs. " I want to go to sleep. Hurry up. PATIENT QUICKBOOKS BOOKKEEPER CHECK B/P . REFUSE TO HAVE BLOOD SUGAR CHECK AT THIS TIME. WILL MONITOR FOR ANY CHANGES.
[2017-07-12] MEDS: ATORVASTATIN 10 MG TABLET PO SCH (22:00)
--- NOTE | 2017-07-12 22:05 | NUR ---
MS/RN NOTES PATIENT VERBALLY ABUSIVE WHEN APPROACHED BY RN AND REFUSE TO HAVE MEDICATION
[2017-07-13 04:42] VITALS: BP 124/68
--- NOTE | 2017-07-13 06:33 | NUR ---
MS/RN NOTES 116-2 PATIENT OBSERVED AND MONITORED DURING THE NIGHT, RESPIRATIONS EVEN AND UNLABORED. ABLE TO SLEEP DURING THE NIGHT AND AROUSABLE, ATTEND TO NEEDS, REFUSE MEDS, SITTER AT BEDSIDE. DENIES PAIN. WILL CONTINUE TO MONITOR.
[2017-07-13 08:00] VITALS: BP 122/66
[2017-07-13] MEDS: LINAGLIPTIN 5 MG TABLET PO SCH (09:30)
[2017-07-13] MEDS: BLOOD SUGAR DIAGNOSTIC 1 EACH STRIP IN SCH ×4 (09:30→21:03)
[2017-07-13] MEDS: THIAMINE HCL 100 MG TABLET PO SCH (09:31)
[2017-07-13] MEDS: BENAZEPRIL HCL 10 MG TABLET PO SCH (09:31)
[2017-07-13] MEDS: CALCIUM ACETATE 667 MG TABLET PO SCH ×3 (09:31→17:35)
[2017-07-13] MEDS: ASPIRIN EC 81 MG TABLET.DR PO SCH (09:32)
[2017-07-13] MEDS: MULTIVIT, IRON, MIN NO. 8, FA 1 TAB PO SCH (09:32)
[2017-07-13] MEDS: PANTOPRAZOLE 40 MG VIAL IV SCH (09:32)
[2017-07-13] MEDS: FOLIC ACID 1 MG TABLET PO SCH (09:32)
[2017-07-13] MEDS: Z GUARD REMEDY 2 OZ OINT TP SCH (09:34)
[2017-07-13] MEDS: RENAL NOVASOURCE (8OZ) 1 EA BOX PO SCH ×3 (09:35→17:36)
[2017-07-13] MEDS: INSULIN DETEMIR 100 UNIT/ML CARTRIDGE SQ SCH ×2 (09:38→20:57)
[2017-07-13] MEDS: INSULIN ASPART HUMALOG/NOVOLOG 100 UNIT/ML CARTRIDGE SQ PRN (09:49)
[2017-07-13] MEDS ORDERED: HEPARIN SODIUM, PORCINE 1,000 UNIT/ML VIAL ONE (15:37)
[2017-07-13] MEDS ORDERED: LIDOCAINE 1% INJ 50 ML MDV IJ ONE (15:37)
[2017-07-13 15:55] LABS: CALCIUM, SERUM 8.7 mg/dL (8.5-10.1); CARBON DIOXIDE 23 mmol/L (21-32); CHLORIDE 105 mmol/L (98-107); GLUCOSE 101 mg/dL (74-106); MAGNESIUM 2.5 mg/dL (1.8-2.4); PHOSPHORUS 5.6 mg/dL (2.5-4.9); POTASSIUM 5.2 mmol/L (3.5-5.1); SODIUM SERUM 140 mmol/L (136-145)
[2017-07-13 15:56] LABS: UREA NITROGEN, BLOOD 89 mg/dL (7-18)
[2017-07-13] MEDS ORDERED: ANESTHESIA TRAY IN PYXIS 1 EA TRAY MC ONE (17:02)
[2017-07-13 17:30] VITALS: BP 126/68
--- NOTE | 2017-07-13 17:30 | NUR ---
RN NOTE PT CAME BACK FROM OR IN STABLE CONDITION, VS STABLE, R CHEST WALL PERMACATH IN PLACE, NO BLEEDING NOTED, DENIES PAIN, SITTER AT BEDSIDE, DINNER PROVIDED. WILL MONITOR
[2017-07-13] MEDS: METOPROLOL SUCCINATE 50 MG TAB.SR.24H PO SCH (17:38)
[2017-07-13 18:33] VITALS: BP 121/62
--- NOTE | 2017-07-13 19:40 | NUR ---
RN OPENING NOTES RECEIVED REPORT FROM DAYSHIFT RN. FOUND Pt AWAKE, RESTING IN BED. NO S/S OF ACUTE DISTRESS OR SEVERE SOB NOTED. EQUAL CHEST RISE AND FALL. NO C/O PAIN AT THIS TIME. Pt IS VERBAL AND ABLE TO MAKE NEEDS KNOWN. SAFETY MEASURES IN PLACE. BED LOW, LOCKED, HOB ELEVATED, SIDE RAILS UP. CALL LIGHT AND BEDSIDE TABLE WITHIN REACH. WILL CONTINUE TO MONITOR Pt THROUGHOUT THE NIGHT FOR SAFETY.
--- NOTE | 2017-07-13 19:50 | NUR ---
RN MS INITIAL NOTE PT RECEIVED IN NO ACUTE DISTRESS. PT IS A/O X2 CONFUSED AND VERY IRRITABLE/CURSING. PT HAS JC MIDLINE THAT IS CLEAN DRY AND INTACT. COMFORT AND SAFETY MEASURES TO BE ENSURED DURING THE SHIFT. WILL CONTINUE TO MONITOR FOR ANY CHANGES.
[2017-07-13 20:00] VITALS: BP 117/64
--- NOTE | 2017-07-13 20:14 | NUR ---
RN NOTES ENDORSED Pt TO NIGHT RNRAMIREZ FOR Pt's LOC.
[2017-07-13] MEDS: ATORVASTATIN 10 MG TABLET PO SCH (21:03)
--- NOTE | 2017-07-13 21:04 | NUR ---
RN NOTE PT REFUSES ALL MEDICATIONS DUE. STATES "THAT IS A FUCKING JOKE AND YOU ARE WASTING MY TIME. THAT IS ALSO A WASTE OF MONEY BECAUSE I AM NOT TAKING IT". MEDICATIONS HELD BUT WILL MONITOR FOR S/S OF HYPERGLYCEMIA OR HYPOGLYCEMIA.
[2017-07-13] MEDS: ACETAMINOPHEN 325 MG TABLET PO PRN (22:59)
[2017-07-14 04:00] VITALS: BP 122/63
[2017-07-14 07:13] LABS: BASOPHILS % (AUTO) 0.9 % (0.0-2.0); EOSINOPHILS # (AUTO) 0.2 /CMM (0.0-0.7); EOSINOPHILS % (AUTO) 4.9 % (0.0-6.0); HEMATOCRIT 24 % (39-51); HEMOGLOBIN 8.2 g/dL (13.5-17.5); LYMPHOCYTES # (AUTO) 0.7 /CMM (0.8-4.8); LYMPHOCYTES % (AUTO) 20.3 % (20.0-44.0); MEAN CORPUSCULAR HEMOGLOBIN 32 PG (26.0-33.0); MEAN CORPUSCULAR HGB CONC 34 g/dl (31.0-36.0); MEAN CORPUSCULAR VOLUME 94 fL (80-96); MONOCYTES # (AUTO) 0.2 /CMM (0.1-1.30); MONOCYTES % (AUTO) 6.6 % (2.0-12.0); NEUTROPHILS # (AUTO) 2.4 /CMM (1.8-8.9); NEUTROPHILS % (AUTO) 67.3 % (43.0-81.0); PLATELET COUNT (AUTO) 111 /CMM (150-450); RDW COEFFICIENT OF VARIATION 16.4 (11.5-15.0); RED BLOOD CELL COUNT(AUTO) 2.55 MIL/uL (4.5-6.0); WHITE BLOOD COUNT (AUTO) 3.6 K/uL (4.3-11.0)
[2017-07-14] MEDS: BLOOD SUGAR DIAGNOSTIC 1 EACH STRIP IN SCH ×2 (07:30→11:49)
--- NOTE | 2017-07-14 07:30 | NUR ---
MS/RN Patient received Patient received from shift manager. Calm and cooperative at this time, plan of care for the day explained to patient and in agreement. Call light within reach, sitter at bedside for safety. Will continue to monitor and ensure safety.
[2017-07-14 08:00] VITALS: BP 125/65
[2017-07-14] MEDS: RENAL NOVASOURCE (8OZ) 1 EA BOX PO SCH ×2 (08:00→12:46)
[2017-07-14] MEDS: CALCIUM ACETATE 667 MG TABLET PO SCH ×2 (08:51→12:46)
[2017-07-14] MEDS: MULTIVIT, IRON, MIN NO. 8, FA 1 TAB PO SCH (08:51)
[2017-07-14] MEDS: THIAMINE HCL 100 MG TABLET PO SCH (08:52)
[2017-07-14] MEDS: ASPIRIN EC 81 MG TABLET.DR PO SCH (08:52)
[2017-07-14] MEDS: FOLIC ACID 1 MG TABLET PO SCH (08:52)
[2017-07-14] MEDS: LINAGLIPTIN 5 MG TABLET PO SCH (08:52)
[2017-07-14] MEDS: BENAZEPRIL HCL 10 MG TABLET PO SCH (08:55)
[2017-07-14] MEDS: INSULIN DETEMIR 100 UNIT/ML CARTRIDGE SQ SCH (08:55)
[2017-07-14] MEDS: Z GUARD REMEDY 2 OZ OINT TP SCH (08:59)
--- NOTE | 2017-07-14 09:17 | NUR ---
MS/RN S/B Dr Callahan Seen by Dr Callahan - stat labs ordered, if K+ elevated, HDX to be ordered. Patient refusing to be dialyzed here stating that he will go back to the facility today. Explained by MD the importance of having HDX today if levels elevated but still refusing.
[2017-07-14 09:45] LABS: CALCIUM, SERUM 8.8 mg/dL (8.5-10.1); CARBON DIOXIDE 24 mmol/L (21-32); CHLORIDE 103 mmol/L (98-107); GLUCOSE 165 mg/dL (74-106); POTASSIUM 5.6 mmol/L (3.5-5.1); SODIUM SERUM 139 mmol/L (136-145)
[2017-07-14 09:48] LABS: CREATININE 10.3 mg/dL (0.6-1.3); UREA NITROGEN, BLOOD 87 mg/dL (7-18)
--- NOTE | 2017-07-14 11:30 | NUR ---
MS/apparatus repair mechanic Discharge order entered by Dr Guerra - exit care completed, chart copied ready for discharge.
--- NOTE | 2017-07-14 11:52 | NUR ---
MS/RN Blood sugar Blood sugar 247, refused insulin coverage.
[2017-07-14 16:00] VITALS: BP 145/74
--- NOTE | 2017-07-14 17:37 | NUR ---
MS/evidence specialist Patient discharged to assisted living facility in stable condition. Heplock and name bands removed. Exit care given to patient, per patient, did not bring glasses with him and can not see what he is signing but understood instructions. Paperwork signed by two nurses. Report given to paramedics. Patient's only belongings (pants) signed for on belongings list. Patient's sister called as belongings list showed that he was admitted with a wheelchair, per sister, he does not own this.
[2017-07-15] MEDS ORDERED: PANTOPRAZOLE 40 MG TABLET.DR PO SCH (07:30)
== END 2017-07-14 17:26 | DRG 368 ==
LOC: ER 12:30 → TELE-TD 14:06 → TELE1 07-10 09:59 → MEDSG1 07-11 10:51
PROVIDERS: ADMIT Internal Medicine; ATTEND Internal Medicine
PROC: 05H533Z Insertion of Infusion Device into Right Subclavian Vein, Percutaneous Approach (ICD-10-PCS; principal; 2017-07-08)
PROC: 30233N1 Transfusion of Nonautologous Red Blood Cells into Peripheral Vein, Percutaneous Approach (ICD-10-PCS; 2017-07-08)
PROC: 5A1D70Z Performance of Urinary Filtration, Intermittent, Less than 6 Hours Per Day (ICD-10-PCS; 2017-07-09)
PROC: 0JHD3XZ Insertion of Tunneled Vascular Access Device into Right Upper Arm Subcutaneous Tissue and Fascia, Percutaneous Approach (ICD-10-PCS; 2017-07-13)
PROC: 05HM33Z Insertion of Infusion Device into Right Internal Jugular Vein, Percutaneous Approach (ICD-10-PCS; 2017-07-13)
PROC: B513YZA Fluoroscopy of Right Jugular Veins using Other Contrast, Guidance (ICD-10-PCS; 2017-07-13)
DX: K22.6 Gastro-esophageal laceration-hemorrhage syndrome (principal); N18.6 End stage renal disease; G93.40 Encephalopathy, unspecified; E11.65 Type 2 diabetes mellitus with hyperglycemia; E11.22 Type 2 diabetes mellitus with diabetic chronic kidney disease; I12.0 Hypertensive chronic kidney disease with stage 5 chronic kidney disease or end stage renal disease; G30.9 Alzheimer's disease, unspecified; F02.80 Dementia in other diseases classified elsewhere, unspecified severity, without behavioral disturbance, psychotic disturbance, mood disturbance, and anxiety; Z99.2 Dependence on renal dialysis; Z79.4 Long term (current) use of insulin; I25.2 Old myocardial infarction; E78.5 Hyperlipidemia, unspecified; I25.10 Atherosclerotic heart disease of native coronary artery without angina pectoris; Z95.1 Presence of aortocoronary bypass graft; D63.1 Anemia in chronic kidney disease; M85.9 Disorder of bone density and structure, unspecified; Z79.82 Long term (current) use of aspirin; Z79.899 Other long term (current) drug therapy; Z87.891 Personal history of nicotine dependence; Z86.73 Personal history of transient ischemic attack (TIA), and cerebral infarction without residual deficits
CPT/HCPCS: 36415; 36569; 71010-TC; 80048-TC; 80053-TC; 80076-TC; 82962-TC; 83605-TC; 83735-TC; 84100-TC; 84484-TC; 85025-TC; 85730-TC; 86850-TC; 86921-TC; 87040-TC; 87081-TC; 90935-TC; 97116-TC; 97530-TC; C9113; J1644; J1815; J2405; J3490; J7030; J7040; J7050; P9016-BL; Z7610